=== PATIENT | male | born 1975 | race Caucasian/White ===

== ENCOUNTER → 2024-10-28 | Outpatient (CLI) | payer BC, SELFPAY ==
--- NOTE | 2024-10-28 07:26 | RAD_ITS ---
PROCEDURE: L/S SPINE MIN 4 VIEWS REASON FOR EXAM: CHRONIC BACK PAIN TECHNIQUE: Five views of the lumbar spine COMPARISON: None. FINDINGS: See impression RAD/L/S Spine Min 4 Views IMPRESSION: Vertebral body heights and disc spaces are preserved. Mild/moderate lower lumb ar facet arthrosis, greatest at L4-5. No gross pars defects. Sacroiliac joints are intact. Reading Location: [facility]
[2024-10-28 07:51] LABS: Absolute Neutrophil Count 3.1 X10^3/uL (2.0-7.7); Basophil# 0.04 X10^3/uL; Basophil% 0.8 % (0-1); Eosinophil# 0.14 X10^3/uL; Eosinophils% 2.7 % (0-5); Hematocrit 41.6 % (40-54); Lymphocyte % 25.4 % (19-41); Mean Corp Hgb Conc 33.7 g/dL (32-36); Mean Corpuscular Hgb 30.4 pg (27.0-32.0); Mean Corpuscular Volume 90.2 fL (80-94); Mean Platelet Vol. 9.5 fl (6.2-12.0); Monocyte# 0.56 X10^3/uL; NRBC Flagged by Analyzer 0 % (0-5); Neutrophil # 3.05 X10^3/uL (2.7-7.7); Neutrophil % 59.7 % (47-70); Platelet Count 232 K/mm3 (150-450); RBC Distribution Width CV 12.8 % (11.6-14.6); RBC Distribution Width SD 41.6 fl (35.1-43.9); Red Blood Count 4.61 M/mm3 (4.6-6.2); White Blood Count 5.1 K/mm3 (4.4-11.0)
[2024-10-28 08:51] LABS: Cholesterol 194 mg/dL (<=200); High Density Lipoprotein 39 mg/dL; Low Density Lipoprotein Calc. 116 mg/dL; Triglycerides 194 mg/dL; Very Low Density Lipoprotein 39 mg/dL (5-40)
[2024-10-28 16:19] LABS: ALB/GLOB Ratio 1.7 RATIO (0.9-2.4); AST(SGOT) 25 U/L (<=37); Alanine Aminotransfer ALT/SGPT < 5 U/L (<=46); Albumin, Serum 4.2 g/dL (3.5-5.0); Alkaline Phosphatase 73 U/L (40-129); Anion Gap 11 (5-15); BUN 12 mg/dL (4-19); BUN/Creat Ratio 12.3 RATIO (10-20); Calcium,Total 8.8 mg/dL (7.6-11.0); Carbon Dioxide 23.5 mmol/L (21.0-32.0); Chloride 109 mmol/L (98-108); Creatinine, Serum 0.99 mg/dL (0.70-1.20); EST Glomerular Filtration Rate 94 (>60); Globulin 2.5 g/dL (2.2-4.2); Glucose 104 mg/dL (70-99); Potassium 4.1 mmol/L (3.3-5.1); Protein, Total 6.6 g/dL (5.9-8.4); Sodium Level 143 mmol/L (133-145); Total Bilirubin 0.39 mg/dL (0.00-1.30)
== END | disposition home or self-care (01) ==
PROVIDERS: PCP Internal Medicine; Referring Provider Internal Medicine; Visit Provider Internal Medicine
DX: E78.5 Hyperlipidemia, unspecified (principal); M47.816 Spondylosis without myelopathy or radiculopathy, lumbar region; G89.29 Other chronic pain
CPT/HCPCS: 36415; 72110; 80053; 80061; 85025

== ENCOUNTER → 2024-10-31 | Outpatient (CLI) | payer BC, SELFPAY ==
--- NOTE | 2024-10-31 18:02 | US_ITS ---
PROCEDURE: Testicular ultrasound. 10/31/2024 REASON FOR EXAM: Left scrotal swelling TECHNIQUE: Hernández scale imaging of the scrotal contents. COMPARISON: None available. FINDINGS: The right testicle is 3.9 x 2.9 x 2.0 cm. The right epididymis is 1.3 cm. The left testicle is 3.8 x 2.4 x 1.5 cm. The left epididymis is 1.3 cm. The testicles are fairly homogeneous in echotexture, without evidence of solid intratesticular mass. Blood flow is present in both testicles on Doppler evaluation. Moderate right and small left scrotal hydroceles. No sizable varicocele. Mild bilateral scrotal wall thickening. There are a few simple cysts of the head of the left epididymis, the largest at 8 mm. US/Testicular with Arterial Flow IMPRESSION: No evidence of testicular torsion or intratesticular mass. Moderate right and small left scrotal hydroceles. Mild edematous appearance of the scrotal soft tissues, nonspecific. A few simple appearing left epididymal head cysts, the largest at 8 mm. Reading Location: [facility]
== END | disposition home or self-care (01) ==
LOC: US 17:58
PROVIDERS: PCP Internal Medicine; Referring Provider Internal Medicine; Visit Provider Internal Medicine
DX: N50.89 Other specified disorders of the male genital organs (principal)
CPT/HCPCS: 76870; 93976